=== PATIENT | female | born 1990 | race American Indian/Alaskan Native ===

== ENCOUNTER 2019-12-26 08:18 | Observation (INO) | payer OTHER ==
[2019-12-26 09:51] LABS: Bilirubin,Urine NEG (Negative); Blood,Urine NEG (Negative); Color,Urine Yellow (Yellow); Mucus,Urine FEW /HPF; Protein,Urine <15 mg/dL mg/dL (Negative); Urobilinogen,Urine < 2.0 mg/dL (<2.0)
[2019-12-26 09:55] LABS: HCG Qualitative,Urine Negative (Negative)
[2019-12-26] MEDS ORDERED: ONDANSETRON 4 MG/2 ML INJ IV ONE (10:11)
[2019-12-26] MEDS ORDERED: SODIUM CHLORIDE 0.9% 1000 ML 1,000 ML IV ONE (10:11)
[2019-12-26] MEDS ORDERED: DICYCLOMINE 20 MG/2 ML INJ IM ONE (10:11)
--- NOTE | 2019-12-26 10:32 | Emergency Department Report ---
ED N/V/D HPI - General Chief complaint: Abdominal Pain Stated complaint: LACK OF APPETITE, LIGHTHEADED, GI ISSUE Time Seen by Provider: 12/26/19 10:03 Source: patient Mode of arrival: Ambulatory Limitations: No Limitations - History of Present Illness Initial comments: Patient is a 29-year-old female presents emergency room with complaints of nausea, vomiting, diarrhea that began 3 days ago. She has associated decreased appetite and unable to tolerate p.o. intake. 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 She states she has some upper abdominal discomfort described as a pressure. She states that she also feels like she has acid reflux and feels a burning sensation. She denies any urinary symptoms, fever, hematochezia, hematemesis, blood in the stool. She denies any sick contacts, recent travel, recent camping. She has a past medical history of hypertension. She denies any allergies to medications. She states her last menstrual cycle was December 17, 2019. She states that she rarely ever drinks alcohol. She denies any IV drug use. She states that the only medication that she takes is lisinopril. She denies any Tylenol use. - Related Data Home Medications Medication Instructions Recorded Confirmed Last Taken lisinopriL [Zestril TAB] 10 mg PO ONCE 12/26/19 12/26/19 Unknown Allergies Allergy/AdvReac Type Severity Reaction Status Date / Time No Known Allergies Allergy Unverified 12/26/19 08:27 ED Review of Systems ROS: Stated complaint: LACK OF APPETITE, LIGHTHEADED, GI ISSUE Other details as noted in HPI Comment: All other systems reviewed and negative ED Past Medical Hx - Past Medical History Previous Medical History?: Yes Additional medical history: Hernia diagnosed 2018 - Surgical History Past Surgical History?: No - Social History Smoking Status: Never Smoker Substance Use Type: None - Medications Home Medications: Home Medications Medication Instructions Recorded Confirmed Last Taken Type lisinopriL [Zestril TAB] 10 mg PO ONCE 12/26/19 12/26/19 Unknown History ED Physical Exam - General Limitations: No Limitations General appearance: alert, in no apparent distress - Head Head exam: Present: atraumatic, normocephalic - Eye Eye exam: Present: normal appearance - ENT ENT exam: Present: mucous membranes dry (mildly) - Respiratory Respiratory exam: Present: normal lung sounds bilaterally. Absent: respiratory distress, wheezes, rales, rhonchi, stridor, chest wall tenderness, accessory muscle use, decreased breath sounds, prolonged expiratory - Cardiovascular Cardiovascular Exam: Present: regular rate, normal rhythm, normal heart sounds. Absent: systolic murmur, diastolic murmur, rubs, gallop - GI/Abdominal GI/Abdominal exam: Present: soft, normal bowel sounds, other (small amount of diastasis recti, non ttp, only present with flexing of the abdominal muscles). Absent: distended, tenderness, guarding, rebound, rigid - Neurological Exam Neurological exam: Present: alert, oriented X3 - Psychiatric Psychiatric exam: Present: normal affect, normal mood - Skin Skin exam: Present: warm, dry, intact ED Course Vital Signs 12/26/19 12/26/19 08:53 11:13 Temperature 98.8 F Pulse Rate 104 H 99 H Respiratory 16 20 Rate Blood Pressure 142/93 Blood Pressure 133/90 [Left] O2 Sat by Pulse 99 100 Oximetry - Consultations Consultation #1: 12/26/19 15:20 spoke to Karina Jones, CHEMICAL APPLICATOR with [facility], recommended admission to trend LFTs, will consult on patient in the hospital, pt will be admitted to spitalist service Consultation #2: 12/26/19 15:[address] Low, hospitalist, will accept and resume care of patient, pt will be admitted to the hospitalist service ED Medical Decision Making - Lab Data Result diagrams: 12/26/19 10:31 12/26/19 10:31 Lab Results 12/26/19 12/26/19 12/26/19 Range/Units 09:00 10:31 10:31 WBC 7.2 (4.5-11.0) K/mm3 RBC 3.99 (3.65-5.03) M/mm3 Hgb 12.6 (10.1-14.3) gm/dl Hct 38.0 (30.3-42.9) % MCV 95 (79-97) fl MCH 32 (28-32) pg MCHC 33 (30-34) % RDW 15.9 H (13.2-15.2) % Plt Count 240 (140-440) K/mm3 Lymph % (Auto) 12.3 L (13.4-35.0) % [place] % (Auto) 4.6 (0.0-7.3) % Eos % (Auto) 0.5 (0.0-4.3) % Baso % (Auto) 0.4 (0.0-1.8) % Lymph # 0.9 L (1.2-5.4) K/mm3 [place] # 0.3 (0.0-0.8) K/mm3 Eos # 0.0 (0.0-0.4) K/mm3 Baso # 0.0 (0.0-0.1) K/mm3 Seg Neutrophils % 82.2 H (40.0-70.0) % Seg Neutrophils # 5.9 (1.8-7.7) K/mm3 Sodium 134 L (137-145) mmol/L Potassium 3.6 (3.6-5.0) mmol/L Chloride 94.8 L (98-107) mmol/L Carbon Dioxide 19 L (22-30) mmol/L Anion Gap 24 mmol/L BUN 3 L (7-17) mg/dL Creatinine 0.5 L (0.7-1.2) mg/dL Estimated GFR > 60 ml/min BUN/Creatinine Ratio 6 % Glucose 123 H (65-100) mg/dL Calcium 9.2 (8.4-10.2) mg/dL Total Bilirubin 4.50 H (0.1-1.2) mg/dL AST 556 H (5-40) units/L ALT 157 H (7-56) units/L Alkaline Phosphatase 110 (35-129) units/L Total Protein 7.9 (6.3-8.2) g/dL Albumin 4.5 (3.9-5) g/dL Albumin/Globulin Ratio 1.3 % Lipase 27 (13-60) units/L Urine Color Yellow (Yellow) Urine Turbidity Clear (Clear) Urine pH 7.0 (5.0-7.0) Ur Specific [place] 1.003 (1.003-1.030) Urine Protein <15 mg/dl (Negative) mg/dL Urine Glucose (UA) Neg (Negative) mg/dL Urine Ketones Tr (Negative) mg/dL Urine Blood Neg (Negative) Urine Nitrite Neg (Negative) Urine Bilirubin Neg (Negative) Urine Urobilinogen < 2.0 (<2.0) mg/dL Ur Leukocyte Esterase Neg (Negative) Urine WBC (Auto) 3.0 (0.0-6.0) /HPF Urine RBC (Auto) 3.0 (0.0-6.0) /HPF U Epithel Cells (Auto) 3.0 (0-13.0) /HPF Urine Mucus Few /HPF Urine HCG, Qual Negative (Negative) Hepatitis A IgM Ab (NonReactive) Hep Bs Antigen (Negative) Hep B Core IgM Ab (NonReactive) Hepatitis C Antibody (NonReactive) 12/26/19 Range/Units 12:32 WBC (4.5-11.0) K/mm3 RBC (3.65-5.03) M/mm3 Hgb (10.1-14.3) gm/dl Hct (30.3-42.9) % MCV (79-97) fl MCH (28-32) pg MCHC (30-34) % RDW (13.2-15.2) % Plt Count (140-440) K/mm3 Lymph % (Auto) (13.4-35.0) % [place] % (Auto) (0.0-7.3) % Eos % (Auto) (0.0-4.3) % Baso % (Auto) (0.0-1.8) % Lymph # (1.2-5.4) K/mm3 [place] # (0.0-0.8) K/mm3 Eos # (0.0-0.4) K/mm3 Baso # (0.0-0.1) K/mm3 Seg Neutrophils % (40.0-70.0) % Seg Neutrophils # (1.8-7.7) K/mm3 Sodium (137-145) mmol/L Potassium (3.6-5.0) mmol/L Chloride (98-107) mmol/L Carbon Dioxide (22-30) mmol/L Anion Gap mmol/L BUN (7-17) mg/dL Creatinine (0.7-1.2) mg/dL Estimated GFR ml/min BUN/Creatinine Ratio % Glucose (65-100) mg/dL Calcium (8.4-10.2) mg/dL Total Bilirubin (0.1-1.2) mg/dL AST (5-40) units/L ALT (7-56) units/L Alkaline Phosphatase (35-129) units/L Total Protein (6.3-8.2) g/dL Albumin (3.9-5) g/dL Albumin/Globulin Ratio % Lipase (13-60) units/L Urine Color (Yellow) Urine Turbidity (Clear) Urine pH (5.0-7.0) Ur Specific [place] (1.003-1.030) Urine Protein (Negative) mg/dL Urine Glucose (UA) (Negative) mg/dL Urine Ketones (Negative) mg/dL Urine Blood (Negative) Urine Nitrite (Negative) Urine Bilirubin (Negative) Urine Urobilinogen (<2.0) mg/dL Ur Leukocyte Esterase (Negative) Urine WBC (Auto) (0.0-6.0) /HPF Urine RBC (Auto) (0.0-6.0) /HPF U Epithel Cells (Auto) (0-13.0) /HPF Urine Mucus /HPF Urine HCG, Qual (Negative) Hepatitis A IgM Ab Non-reactive (NonReactive) Hep Bs Antigen Non-reactive (Negative) Hep B Core IgM Ab Non-reactive (NonReactive) Hepatitis C Antibody Non-reactive (NonReactive) - Radiology Data Radiology results: report reviewed CT ABDOMEN AND PELVIS WITH CONTRAST HISTORY: MAIN: N/V/D, abd pain, elevated LFTs N/V/ X ONE DAY COMPARISON: None. TECHNIQUE: Axial CT images were obtained through the abdomen and pelvis after 100 cc of Omnipaque 300 intravenously. Sagittal and coronal reformatted images. All CT scans at this location are performed using CT dose reduction for ALARA by means of automated exposure control. FINDINGS: CT ABDOMEN: Lung Bases: Clear. Liver: Liver is markedly enlarged with the right hepatic lobe measuring 22 cm in coronal plane. There is moderate to severe diffuse fatty infiltration throughout the liver. No focal mass or surface nodularity. Biliary: No significant abnormality. Spleen: No significant abnormality. Unenlarged. Pancreas: No significant abnormality. Adrenals: No significant abnormality. Kidneys: No significant abnormality. Lymphatics: No lymphadenopathy. Vasculature: No significant abnormality. Bowel/Peritoneum: No significant abnormality. No free air. No free fluid. Normal appendix. CT PELVIS: : No significant abnormality. Osseous Structures: No significant abnormality. Additional Findings: None IMPRESSION: Hepatomegaly with moderate to severe hepatic steatosis. No acute inflammatory process is appreciated. Signer Name: Rubens Mckeon Jr, MD Signed: 12/26/2019 12:23 PM Workstation Name: [id number] Transcribed By: TTR Dictated By: RUBENS MCKEON JR, MD Electronically Authenticated By: RUBENS MCKEON JR, MD Signed Date/Time: 12/26/19 1223 DD/ TD/TT: - Medical Decision Making Patient is a 29-year-old female presents emergency room with complaints of nausea, vomiting, diarrhea that began 3 days ago. She has associated decreased appetite and unable to tolerate p.o. intake. 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 She states she has some upper abdominal discomfort described as a pressure. She states that she also feels like she has acid reflux and feels a burning sensation. She denies any urinary symptoms, fever, hematochezia, hematemesis, blood in the stool. She denies any sick contacts, recent travel, recent camping. She has a past medica l history of hypertension. She denies any allergies to medications. She states her last menstrual cycle was December 17, 2019. She states that she rarely ever drinks alcohol. She denies any IV drug use. She states that the only medication that she takes is lisinopril. She denies any Tylenol use. Initial vitals with mild tachycardia which improved upon repeat. On exam: small amount of diastasis recti, non ttp, only present with flexing of the abdominal muscles. Labs significant for elevated bilirubin, elevated ALT and AST. CT abd pelvis: Hepatomegaly with moderate to severe hepatic steatosis. No acute inflammatory process is appreciated. spoke to Karina Jones NP with [facility], recommended admission to trend LFTs, will consult on patient in the hospital, pt will be admitted to hospitalist service. spoke to Dr. Low, hospitalist, will accept and resume care of patient, pt will be admitted to the hospitalist service. pt admitted to the hospital - Differential Diagnosis hepatitis, pancreatitis, viral illness, gastroenteritis, colitis, hernia Critical care attestation.: If time is entered above; I have spent that time in minutes in the direct care of this critically ill patient, excluding procedure time. ED Disposition Clinical Impression: Nausea vomiting and diarrhea, Elevated LFTs, Hepatomegaly, Steatosis, liver Abdominal pain Qualifiers: Abdominal location: epigastric Qualified Code(s): R10.13 - Epigastric pain Disposition: DC-09 OP ADMIT IP TO THIS HOSP Is pt being admited?: Yes Does the pt Need Aspirin: No Condition: Fair Time of Disposition: 15:28
[2019-12-26 11:04] LABS: Basophils % (Auto) 0.4 % (0.0-1.8); Eosinophils % (Auto) 0.5 % (0.0-4.3); Hemoglobin 12.6 gm/dl (10.1-14.3); Lymphocytes # (Auto) 0.9 K/mm3 (1.2-5.4); Lymphocytes % (Auto) 12.3 % (13.4-35.0); Mean Corpuscular HGB Conc 33 % (30-34); Mean Corpuscular Volume 95 fl (79-97); Monocytes # (Auto) 0.3 K/mm3 (0.0-0.8); Monocytes % (Auto) 4.6 % (0.0-7.3); Platelet Count 240 K/mm3 (140-440); Red Blood Count 3.99 M/mm3 (3.65-5.03); Red Cell Distribution Width 15.9 % (13.2-15.2)
[2019-12-26 11:29] LABS: Alanine Aminotransferase 157 units/L (7-56); Albumin 4.5 g/dL (3.9-5); BUN/Creatinine Ratio 6; Blood Urea Nitrogen 3 mg/dL (7-17); Calcium 9.2 mg/dL (8.4-10.2); Hemolysis Index 19
--- NOTE | 2019-12-26 12:27 | Cat Scan Report ---
CT ABDOMEN AND PELVIS WITH CONTRAST HISTORY: MAIN: N/V/D, abd pain, elevated LFTs N/V/ X ONE DAY COMPARISON: None. TECHNIQUE: Axial CT images were obtained through the abdomen and pelvis after 100 cc of Omnipaque 300 intravenously. Sagittal and coronal reformatted images. All CT scans at this location are performed using CT dose reduction for ALARA by means of automated exposure control. FINDINGS: CT ABDOMEN: Lung Bases: Clear. Liver: Liver is markedly enlarged with the right hepatic lobe measuring 22 cm in coronal plane. There is moderate to severe diffuse fatty infiltration throughout the liver. No focal mass or surface nodu larity. Biliary: No significant abnormality. Spleen: No significant abnormality. Unenlarged. Pancreas: No significant abnormality. Adrenals: No significant abnormality. Kidneys: No significant abnormality. Lymphatics: No lymphadenopathy. Vasculature: No significant abnormality. Bowel/Peritoneum: No significant abnormality. No free air. No free fluid. Normal appendix. CT PELVIS: : No significant abnormality. Osseous Structures: No significant abnormality. Additional Findings: None IMPRESSION: Hepatomegaly with moderate to severe hepatic steatosis. No acute inflammatory process is appreciated. Signer Name: Rubens Brown Jr, MD Signed: 12/26/2019 12:23 PM Workstation Name: [id number]
[2019-12-26 14:31] LABS: Hepatitis B Surface Antigen Non-Reactive (Negative); Hepatitis C Virus Antibody Non-Reactive (NonReactive)
--- NOTE | 2019-12-26 15:26 | Gastroenterology Consultation ---
History of Present Illness - Reason for Consult Consult date: 12/26/19 elevated LFTs Requesting physician: LEATHA WALLER - History of Present Illness Patient is a 29 y/o female with PMH of HTN and hernia who presented to ED with c/o acute onset of abdominal pain described as burning with N/V and diarrhea x 2 days. upon admission, LFTs were found to be elevated to which GI has been consulted. Abd CT showed hepatomegaly with moderate to severe diffuse fatty infiltration. This afternoon patient was sitting in bedside chair w/o acute distress. and son at bedside. She reports feeling better with symptoms improved. No current abd pain. BMs x 3 today with a small amount of liquid non- bloody stool which is her baseline. Denies fever, CP, SOB, wt loss, hematemesis, melena, constipation, or hematochezia. Admits to daily alcohol use with on average 3 glasses of wine ( reports 2 bottles of wine every 2-3 days). No hx of liver disease, tylenol use, new medications, or herbal supplements. No IV drug use. Has a Fhx of liver disease with father 2/2 ETOH. Past History Past Medical History: hypertension, other (hernia) Past Surgical History: No surgical history Social history: , lives with family, other (alcohol). denies: smoking Medications and Allergies Allergies Allergy/AdvReac Type Severity Reaction Status Date / Time No Known Allergies Allergy Unverified 12/26/19 08:27 Active Meds: medications reviewed/updated as required Review of Systems - Review of Systems All systems: negative Gastrointestinal: abdominal pain, nausea, vomiting, diarrhea Exam - Constitutional Vital Signs: Temp Pulse Resp BP Pulse Ox 98.8 F 99 H 20 133/90 100 12/26/19 08:53 12/26/19 11:13 12/26/19 11:13 12/26/19 11:13 12/26/19 11:13 General appearance: no acute distress - EENT Eyes: PERRL, EOM intact ENT: hearing intact - Respiratory Respiratory effort: normal Respiratory: bilateral: CTA - Cardiovascular Rhythm: other (tachycardia) - Gastrointestinal General gastrointestinal: Present: soft, non-tender, non-distended, normal bowel sounds - Integumentary Integumentary: Present: warm, dry - Neurologic Neurological: alert and oriented x3 - Labs CBC & Chem 7: 12/26/19 10:31 12/26/19 10:31 Lab Results: Laboratory Results - last 24 hr 12/26/19 12/26/19 12/26/19 09:00 10:31 10:31 WBC 7.2 RBC 3.99 Hgb 12.6 Hct 38.0 MCV 95 MCH 32 MCHC 33 RDW 15.9 H Plt Count 240 Lymph % (Auto) 12.3 L [place] % (Auto) 4.6 Eos % (Auto) 0.5 Baso % (Auto) 0.4 Lymph # 0.9 L [place] # 0.3 Eos # 0.0 Baso # 0.0 Seg Neutrophils % 82.2 H Seg Neutrophils # 5.9 Sodium 134 L Potassium 3.6 Chloride 94.8 L Carbon Dioxide 19 L Anion Gap 24 BUN 3 L Creatinine 0.5 L Estimated GFR > 60 BUN/Creatinine Ratio 6 Glucose 123 H Calcium 9.2 Total Bilirubin 4.50 H AST 556 H ALT 157 H Alkaline Phosphatase 110 Total Protein 7.9 Albumin 4.5 Albumin/Globulin Ratio 1.3 Lipase 27 Urine Color Yellow Urine Turbidity Clear Urine pH 7.0 Ur Specific [place] 1.003 Urine Protein <15 mg/dl Urine Glucose (UA) Neg Urine Ketones Tr Urine Blood Neg Urine Nitrite Neg Urine Bilirubin Neg Urine Urobilinogen < 2.0 Ur Leukocyte Esterase Neg Urine WBC (Auto) 3.0 Urine RBC (Auto) 3.0 U Epithel Cells (Auto) 3.0 Urine Mucus Few Urine HCG, Qual Negative Hepatitis A IgM Ab Hep Bs Antigen Hep B Core IgM Ab Hepatitis C Antibody 12/26/19 12:32 WBC RBC Hgb Hct MCV MCH MCHC RDW Plt Count Lymph % (Auto) [place] % (Auto) Eos % (Auto) Baso % (Auto) Lymph # [place] # Eos # Baso # Seg Neutrophils % Seg Neutrophils # Sodium Potassium Chloride Carbon Dioxide Anion Gap BUN Creatinine Estimated GFR BUN/Creatinine Ratio Glucose Calcium Total Bilirubin AST ALT Alkaline Phosphatase Total Protein Albumin Albumin/Globulin Ratio Lipase Urine Color Urine Turbidity Urine pH Ur Specific [place] Urine Protein Urine Glucose (UA) Urine Ketones Urine Blood Urine Nitrite Urine Bilirubin Urine Urobilinogen Ur Leukocyte Esterase Urine WBC (Auto) Urine RBC (Auto) U Epithel Cells (Auto) Urine Mucus Urine HCG, Qual Hepatitis A IgM Ab Non-reactive Hep Bs Antigen Non-reactive Hep B Core IgM Ab Non-reactive Hepatitis C Antibody Non-reactive Assessment and Plan 1.elevated LFTs -afebrile -WBC, H/H, plt, and lipase WNL -T.brendan 4.50, AST 556, ALT 157, alk phos 110 -acute hepatitis panel negative -abd CT showed hepatomegaly with moderate to severe diffuse fatty infiltration -etiology-most likely 2/2 alcoholic hepatitis -clinically, patient reports feeling better with abd pain, N/V, and diarrhea improved. No signs of bleeding or encephalopathy upon exam. -will order INR, acetaminophen level, blood alcohol level, autoimmune serologies, and abd U/S -okay for trial of clear liquids -PPI -alcohol cessation discussed encouraged with patient -continue to trend labs (hepatic profile/INR) and supportive care -will follow
[2019-12-26] MEDS ORDERED: ONDANSETRON 4 MG/2 ML INJ IV PRN (15:34)
[2019-12-26] MEDS ORDERED: ACETAMINOPHEN 325 MG TAB PO PRN (15:34)
[2019-12-26] MEDS ORDERED: ALBUTEROL 2.5 MG/3 ML NEBU IH PRN (15:34)
--- NOTE | 2019-12-26 15:38 | History and Physical Report ---
History of Present Illness Chief complaint: My stomach hurts History of present illness: 29-year-old female with hypertension presents to ED for evaluation. Patient states that she has experienced nausea, multiple episodes of vomiting, and several loose stools over the past 3 days with persistent symptoms over the same timeframe. Patient also reports abdominal pain that is 4/10, localized to the right upper quadrant, not associated with meals, without alleviating factors. Patient transported to [facility] via private vehicle for further evaluation and care. Patient seen and evaluated in the emergency department. Lab and imaging studies reviewed. Patient found to have elevated liver function test as well as clin ical findings consistent with hepatitis complicated by scleral icterus. Patient placed in observation status and admitted to medical floor for further observation and care due to increased risk for hepatic decompensation. Gastroenterology team consult placed in ED. Patient denies fever, chills, chest pain, unintentional weight loss, night sweats, known family history of autoimmune disease, ingestion of food/water from new or different sources, or known ill contacts. No prior admission for review. All medication listed at time of admission has been reconciled. Past History Past Medical History: hypertension Past Surgical History: No surgical history, Other (Reviewed) Social history: . denies: smoking, alcohol abuse, prescription drug abuse Family history: no significant family history (Reviewed) Medications and Allergies Allergies Allergy/AdvReac Type Severity Reaction Status Date / Time No Known Allergies Allergy Unverified 12/26/19 08:27 Home Medications Medication Instructions Recorded Confirmed Last Taken Type lisinopriL [Zestril TAB] 10 mg PO ONCE 12/26/19 12/26/19 Unknown History Active Meds: Active Medications Acetaminophen (Tylenol) 650 mg PO Q4H PRN PRN Reason: Pain MILD(1-3)/Fever >100.5/BILL Albuterol (Proventil) 2.5 mg IH Q4HRT PRN PRN Reason: Shortness Of Breath Sodium Chloride (Nacl 0.45% 1000 Ml) 1,000 mls @ 42 mls/hr IV DIRECT SHARIF Ondansetron HCl (Zofran) 4 mg IV Q8H PRN PRN Reason: Nausea And Vomiting Sodium Chloride (Sodium Chloride Flush Syringe 10 Ml) 10 ml IV BID SHARIF Sodium Chloride (Sodium Chloride Flush Syringe 10 Ml) 10 ml IV PRN PRN PRN Reason: LINE FLUSH Review of Systems Constitutional: no weight loss, no weight gain, no fever Ears, nose, mouth and throat: no ear pain, no ear discharge, no decreased hearing, no nose pain, no nasal congestion Breasts: no change in shape, no swelling, no mass Cardiovascular: no chest pain, no orthopnea, no palpitations, no rapid/irregular heart beat, no edema Respiratory: no cough, no cough with sputum Gastrointestinal: abdominal pain, nausea, vomiting, diarrhea, no BRBPR, no melena, no hematochezia Genitourinary Female: no pelvic pain, no flank pain, no urinary frequency, no urgency Rectal: no pain, no incontinence, no bleeding Musculoskeletal: no neck stiffness, no neck pain, no shooting arm pain, no arm numbness/tingling, no low back pain, no leg numbness/tingling Integumentary: jaundice, no rash, no pruritis, no redness, no wounds Neurological: no transient paralysis, no paralysis, no weakness, no numbness, no tingling Psychiatric: insomnia, no anxiety, no memory loss, no change in sleep habits, no hypersomnia, no change in appetite, no change in libido Endocrine: no cold intolerance, no polyphagia, no excessive thirst, no polydipsia, no polyuria, no nocturia Hematologic/Lymphatic: no easy bruising, no easy bleeding, no lymphadenopathy Allergic/Immunologic: no anaphylaxis, no angioedema Exam - Constitutional Vitals: Temp Pulse Resp BP Pulse Ox 98.8 F 99 H 20 133/90 100 12/26/19 08:53 12/26/19 11:13 12/26/19 11:13 12/26/19 11:13 12/26/19 11:13 General appearance: Present: mild distress - EENT Eyes: Present: PERRL, scleral icterus ENT: hearing intact, clear oral mucosa - Neck Neck: Present: supple, normal ROM - Respiratory Respiratory effort: normal Respiratory: bilateral: CTA - Cardiovascular Heart Sounds: Present: S1 & S2. Absent: rub, click - Extremities Extremities: pulses symmetrical, No edema Peripheral Pulses: within normal limits - Abdominal General gastrointestinal: Present: soft, tender, non-distended, hepatomegaly. Absent: absent bowel sounds Localized gastrointestinal: tender: RUQ - Integumentary Integumentary: Present: clear, dry, jaundice - Musculoskeletal Musculoskeletal: gait normal, strength equal bilaterally - Psychiatric Psychiatric: appropriate mood/affect, intact judgment & insight - Neurologic Neurologic: CNII-XII intact, moves all extremities Results - Labs CBC & Chem 7: 12/26/19 10:31 12/26/19 10:31 Labs: Abnormal lab results 12/26/19 12/26/19 Range/Units 10:31 10:31 RDW 15.9 H (13.2-15.2) % Lymph % (Auto) 12.3 L (13.4-35.0) % Lymph # 0.9 L (1.2-5.4) K/mm3 Seg Neutrophils % 82.2 H (40.0-70.0) % Sodium 134 L (137-145) mmol/L Chloride 94.8 L (98-107) mmol/L Carbon Dioxide 19 L (22-30) mmol/L BUN 3 L (7-17) mg/dL Creatinine 0.5 L (0.7-1.2) mg/dL Glucose 123 H (65-100) mg/dL Total Bilirubin 4.50 H (0.1-1.2) mg/dL AST 556 H (5-40) units/L ALT 157 H (7-56) units/L Assessment and Plan - Patient Problems (1) Hepatitis Current Visit: Yes Status: Acute Plan to address problem: Liver function test, CBC, CT abdomen and pelvis, hepatitis panel, liver ultrasound, clear liquid diet advance as tolerated, GI consult placed in emergency department. (2) Hypertension Current Visit: Yes Status: Acute Qualifiers: Hypertension type: essential hypertension Qualified Code(s): I10 - Essential (primary) hypertension Plan to address problem: Monitor blood pressure every shift, continue medical management. (3) Elevated LFTs Current Visit: Yes Status: Acute Plan to address problem: Gastroenterology team consulted, repeat LFT in a.m. as per GI team, supportive care, CT abdomen and pelvis, liver ultrasound. (4) DVT prophylaxis Current Visit: Yes Status: Acute Plan to address problem: SCD to bilateral lower extremities while in bed, patient is ambulatory.
[2019-12-26] MEDS ORDERED: SODIUM CHLORIDE 0.45% 1000 ML 1,000 ML IV SCH (16:00)
[2019-12-26 16:22] LABS: Bilirubin,Direct 1.3 mg/dL (0-0.2)
--- NOTE | 2019-12-26 17:16 | Ultrasound Report ---
ULTRASOUND ABDOMEN, COMPLETE INDICATION: elevated LFTs. COMPARISON: CT abdomen and pelvis with contrast performed earlier today. FINDINGS: Pancreas: No significant abnormality. Abdominal Aorta: No significant abnormality. IVC: No significant abnormality. Liver: Enlarged with generalized increased echotexture, consistent with steatosis. No additional sign ificant abnormality. Gallbladder: No significant abnormality. Bile ducts: No significant abnormality. Common bile duct measures 2 mm. Kidneys: Right: No significant abnormality. Left : No significant abnormality. Spleen: No significant abnormality. Free fluid: None. Additional Findings: None. IMPRESSION: Hepatomegaly and hepatic steatosis. Signer Name: Darrick Collier MD Signed: 12/26/2019 5:12 PM Workstation Name: [id number]
[2019-12-26 17:41] LABS: INR 1.1 (0.87-1.13)
[2019-12-27 05:20] LABS: INR 1.11 (0.87-1.13)
[2019-12-27 05:39] LABS: Alanine Aminotransferase 132 units/L (7-56); Albumin 4.4 g/dL (3.9-5); BUN/Creatinine Ratio 4; Bilirubin,Direct 1.2 mg/dL (0-0.2); Blood Urea Nitrogen 3 mg/dL (7-17); Calcium 9.1 mg/dL (8.4-10.2); Hemolysis Index 4
--- NOTE | 2019-12-27 11:19 | Gastroenterology Progress Note ---
Assessment and Plan 1.elevated LFTs -afebrile -WBC, H/H, plt, and lipase WNL -INR WNL-stable -LFTs trending down (T.brendan 3.70, AST 392, ALT 132, alk phos 96) -acute hepatitis panel and acetaminophen negative -ferritin >2000 and autoimmune serologies pending-f/u in clinic -abd CT and U/S showed hepatomegaly with moderate to severe diffuse fatty infiltration (no biliary dilatation) -etiology-most likely 2/2 alcoholic hepatitis -clinically, patient is stable with no signs of liver failure or encephalopathy. Denies abd pain, N/V, or signs of bleeding. Tolerating diet. -diet as tolerated -DF< 32-no recommendation for steroids -PPI -alcohol cessation discussed encouraged with patient -continue to trend labs and supportive care -patient okay to be d/c per GI standpoint with f/u in clinic in ~3 weeks (discussed with patient with understanding voiced; office information/card given) -will sign off, please call if needed Subjective Date of service: 12/27/19 Principal diagnosis: elevated LFTs Interval history: Patient sitting up in bed w/o acute distress. Family at bedside. Denies abd pain, N/V, or signs of bleeding. Tolerating diet. Objective - Constitutional Vitals: Temp Pulse Resp BP Pulse Ox 98.8 F 87 16 128/84 99 12/27/19 04:48 12/27/19 04:48 12/27/19 04:48 12/27/19 04:48 12/27/19 08:11 General appearance: no acute distress - EENT Eyes: PERRL, EOM intact ENT: hearing intact - Respiratory Respiratory effort: normal Respiratory: bilateral: CTA - Cardiovascular Rhythm: regular - Gastrointestinal General gastrointestinal: Present: soft, non-tender, non-distended, normal bowel sounds - Integumentary Integumentary: Present: warm, dry - Neurologic Neurological: alert and oriented x3 - Labs CBC & Chem 7: 12/26/19 10:31 12/27/19 04:21 Labs: Laboratory Results - last 24 hr 12/26/19 12/26/19 12/26/19 10:31 12:32 15:49 PT INR Sodium 134 L Potassium 3.6 Chloride 94.8 L Carbon Dioxide 19 L Anion Gap 24 BUN 3 L Creatinine 0.5 L Estimated GFR > 60 BUN/Creatinine Ratio 6 Glucose 123 H Calcium 9.2 Ferritin Total Bilirubin 4.50 H Direct Bilirubin Indirect Bilirubin AST 556 H ALT 157 H Alkaline Phosphatase 110 Total Protein 7.9 Albumin 4.5 Albumin/Globulin Ratio 1.3 Lipase 27 Acetaminophen < 5.0 L Plasma/Serum Alcohol Hepatitis A IgM Ab Non-reactive Hep Bs Antigen Non-reactive Hep B Core IgM Ab Non-reactive Hepatitis C Antibody Non-reactive 12/26/19 12/26/19 12/26/19 15:49 15:49 17:01 PT 14.3 INR 1.10 Sodium Potassium Chloride Carbon Dioxide Anion Gap BUN Creatinine Estimated GFR BUN/Creatinine Ratio Glucose Calcium Ferritin Total Bilirubin 4.20 H Direct Bilirubin 1.3 H Indirect Bilirubin 2.9 AST ALT Alkaline Phosphatase Total Protein Albumin Albumin/Globulin Ratio Lipase Acetaminophen Plasma/Serum Alcohol < 0.01 Hepatitis A IgM Ab Hep Bs Antigen Hep B Core IgM Ab Hepatitis C Antibody 12/26/19 12/27/19 12/27/19 17:01 04:20 04:21 PT 14.4 INR 1.11 Sodium 140 Potassium 3.2 L Chloride 99.9 Carbon Dioxide 22 Anion Gap 21 BUN 3 L Creatinine 0.7 Estimated GFR > 60 BUN/Creatinine Ratio 4 Glucose 99 Calcium 9.1 Ferritin > 2000.0 H Total Bilirubin 3.70 H Direct Bilirubin 1.2 H Indirect Bilirubin 2.5 AST 392 H ALT 132 H Alkaline Phosphatase 96 Total Protein 7.3 Albumin 4.4 Albumin/Globulin Ratio 1.5 Lipase Acetaminophen Plasma/Serum Alcohol Hepatitis A IgM Ab Hep Bs Antigen Hep B Core IgM Ab Hepatitis C Antibody
[2019-12-27] MEDS ORDERED: POTASSIUM CHLORIDE ER 20 MEQ TAB PO SCH (11:30)
[2019-12-27] MEDS ORDERED: FLU VACC QUAD 2019-20 (3 YR UP)/PF 60 MCG/0.5 ML SYRINGE IM ONE (12:00)
[2019-12-27] MEDS ORDERED: POTASSIUM CHLORIDE ER 20 MEQ TAB PO ONE (13:34)
--- NOTE | 2019-12-27 13:38 | Discharge Summary ---
Providers - Providers Date of Admission: 12/26/19 15:34 Date of discharge: 12/27/19 Attending physician: JERZY ESTRELLA 12/26/19 15:23 Consult to Physician [CONS] Stat Comment: Consulting Provider: AMEE ESCOBAR Physician Instructions: Reason For Exam: abd pain, N/V/D, elevated LFTs, hepatomegaly Primary care physician: JUANPABLO GARCIA Hospitalization Condition: Fair Hospital course: Discharge Diagnosis: Hepatitis Hypertension Elevated LFTs Disposition: - TO HOME OR SELFCARE Time spent for discharge: 34 minutes Core Measure Documentation - Palliative Care Palliative Care/ Comfort Measures: Not Applicable - Core Measures Any of the following diagnoses?: none Exam - Constitutional Vitals: Temp Pulse Resp BP Pulse Ox 98.5 F 88 16 152/103 99 12/27/19 11:40 12/27/19 11:40 12/27/19 11:40 12/27/19 11:40 12/27/19 11:40 General appearance: Present: no acute distress, well-nourished - EENT Eyes: Present: PERRL ENT: hearing intact, clear oral mucosa - Neck Neck: Present: supple, normal ROM - Respiratory Respiratory effort: normal Respiratory: bilateral: CTA - Cardiovascular Heart Sounds: Present: S1 & S2. Absent: rub, click - Extremities Extremities: pulses symmetrical, No edema Peripheral Pulses: within normal limits - Abdominal General gastrointestinal: Present: soft, non-tender, non-distended, normal bowel sounds - Integumentary Integumentary: Present: clear, warm, dry - Musculoskeletal Musculoskeletal: gait normal, strength equal bilaterally - Psychiatric Psychiatric: appropriate mood/affect, intact judgment & insight - Neurologic Neurologic: CNII-XII intact, moves all extremities Plan Activity: advance as tolerated Weight Bearing Status: Weight Bear as Tolerated Diet: advance as tolerated Follow up with: JUANPABLO GARCIA NP-C [Primary Care Provider] - 3-5 Days
[2019-12-27] MEDS ORDERED: LISINOPRIL 10 MG TAB PO SCH (14:00)
[2019-12-27 15:20] VITALS: BP 149/96
== END 2019-12-27 15:40 | disposition home or self-care (01) ==
LOC: ED 08:18 → 3A 15:34
PROVIDERS: ADMIT Internal Medicine; ATTEND Internal Medicine
DX: B17.9 Acute viral hepatitis, unspecified (principal); R11.2 Nausea with vomiting, unspecified; R19.7 Diarrhea, unspecified; R79.89 Other specified abnormal findings of blood chemistry; K76.0 Fatty (change of) liver, not elsewhere classified; R16.0 Hepatomegaly, not elsewhere classified; I10 Essential (primary) hypertension; Z79.899 Other long term (current) drug therapy; Z23 Encounter for immunization
CPT/HCPCS: 36415; 74177; 76700; 80053; 80074; 80076; 81001; 81025; 82247; 82248; 82728; 83516; 83520; 83690; 85025; 85610; 86038; 90471; 90686; 96361; 96372; 96374; 99285; G0378; J0500; J2405; J7030; Q9967; 80320; G0480